=== PATIENT | female | born 1945 | race Caucasian/White ===

== ENCOUNTER 2018-04-18 06:41 | Day surgery (SDC) | payer MEDICARE, OTHER ==
[~2018-04-18 06:41] MED LIST: CEFAZOLIN 2 GM/50 ML (PMX) 50 ML IVPB
[2018-04-18] MEDS ORDERED: CEFAZOLIN 1 GM INJ (07:00)
[2018-04-18] MEDS ORDERED: DEXTROSE 5%-LR 1,000 ML IV (15:00)
[2018-04-18] MEDS ORDERED: ONDANSETRON 4 MG INJ IV ×2 (15:30→17:30)
[2018-04-18] MEDS ORDERED: MEPERIDINE 25 MG INJ IV (15:30)
[2018-04-18] MEDS ORDERED: HYDROmorphONE 1 MG/5 ML IV SYRINGE IV ×2 (15:30)
[2018-04-18] MEDS ORDERED: DIPHENHYDRAMINE 50 MG INJ IV (15:30)
[2018-04-18] MEDS ORDERED: FENTAnyl 50 MCG/ML VIAL IV (15:30)
[2018-04-18] MEDS ORDERED: FENTAnyl 50 MCG/ML VIAL (16:17)
[2018-04-18] MEDS ORDERED: LIDOCAINE 2% (SDV) 5 ML INJ (16:26)
[2018-04-18] MEDS ORDERED: DEXAMETHASONE 4 MG/ML 1 ML INJ (16:26)
[2018-04-18] MEDS ORDERED: FAMOTIDINE 20 MG INJ (16:26)
[2018-04-18] MEDS ORDERED: PROPOFOL 20 ML ×2 (16:26→16:54)
[2018-04-18] MEDS ORDERED: SUCCINYLCHOLINE CHLORIDE 100 MG/5 ML SYG IV (16:26)
[2018-04-18] MEDS ORDERED: ONDANSETRON 4 MG INJ (16:26)
[2018-04-18] MEDS: BUPIVACAINE 0.25% (MPF) 30 ML INJ (16:37)
[2018-04-18] MEDS: OXYCODONE/ACETAMINOPHEN (5/325) TAB PO (17:27)
[2018-04-18] MEDS ORDERED: HYDROCODONE/APAP (5/325) TAB PO (17:30)
[2018-04-18] MEDS ORDERED: IBUPROFEN 600 MG TAB PO (17:30)
== END 2018-04-18 19:02 | disposition home or self-care (01) ==
LOC: SDS 06:41
DX: R59.0 Localized enlarged lymph nodes (principal); E78.5 Hyperlipidemia, unspecified
CPT/HCPCS: 38525; 88307; 88313; 88341; 88342